=== PATIENT | male | born 1965 | race Caucasian/White ===

== ENCOUNTER 2020-11-20 14:22 | Inpatient (IN) ==
[2020-11-20] MEDS ORDERED: SODIUM CHLORIDE 0.9% 1,000 ML IV STA ×2 (15:05→16:07)
[2020-11-20] MEDS ORDERED: HYDROmorphone 2 MG/1 ML VIAL IV STA ×2 (15:12→17:12)
[2020-11-20] MEDS ORDERED: ENOXAPARIN 100 MG/ML SYRINGE SUBCUT STA (15:12)
[2020-11-20] MEDS ORDERED: ONDANSETRON 4 MG/2 ML VIAL IV STA (15:12)
[2020-11-20 15:22] LABS: Basophils % 0.2 % (0.0-0.8); Hemoglobin 10.7 GM/DL (14.0-18.0); Immature Granulocytes % 4.3 %; Immature Granulocytes Absolute 0.87 #; Lymphocytes # 1.6 10*3/uL (1.4-4.0); Lymphocytes % 8.1 % (21.2-54.2); Mean Corpuscular HGB Conc 33.4 GM/DL (32-36); Mean Corpuscular Volume 91.7 FL (87-102); Mean Platelet Volume 8.2 FL (9.6-12.0); Monocytes % 6.7 % (1.7-12.7); Neutrophils % 80.7 % (38.7-73.9); Platelet Count 590 T/CUMM (130-400); Red Blood Count 3.49 MC/CUMM (3.8-5.5); White Blood Count 20.1 T/CUMM (4-12)
[2020-11-20 15:41] LABS: Anisocytosis Slight; Band Neutrophils 5 % (0-10); Burr Cells Slight; Lymphocytes 8 % (20-55); Segmented Neutrophils 80 % (50-85); Total Cells Counted 100
[2020-11-20 15:42] LABS: Platelet Estimate Increased
[2020-11-20] MEDS ORDERED: LORazepam 2 MG/1 ML VIAL IV STA (15:50)
[2020-11-20 15:55] LABS: INR 1.1; PT Patient Result 11.8 SECS (10.5-12.0); Partial Thromboplastin Time 35.4 SECS (23.9-33.8)
[2020-11-20 16:03] LABS: Calcium 8.9 MG/DL (8.5-10.1); Osmolality,Calculated 305.5 MOS/KG (273-304); Potassium 4.7 MMOL/L (3.5-5.1)
[2020-11-20] MEDS ORDERED: PIPERACILLIN/TAZOBACTAM 3,375 MG in SODIUM CHLORIDE 0.9% 100 ML IV STA (16:07)
[2020-11-20] MEDS ORDERED: PIPERACILLIN/TAZOBACTAM 3,375 MG VIAL IV ONE (16:07)
[2020-11-20] MEDS ORDERED: DEXTROSE 50% 25 GM/50 ML VIAL IV PRN (18:02)
[2020-11-20] MEDS ORDERED: DOCUSATE SODIUM 100 MG CAPSULE PO PRN (18:02)
[2020-11-20] MEDS ORDERED: ONDANSETRON 4 MG/2 ML VIAL IV PRN (18:02)
[2020-11-20] MEDS ORDERED: hydrALAZINE 20 MG/1 ML VIAL IV PRN (18:02)
[2020-11-20] MEDS ORDERED: GLUCAGON 1 MG VIAL IM PRN (18:02)
[2020-11-20] MEDS ORDERED: SIMETHICONE CHEW 125 MG TABLET PO PRN (18:02)
[2020-11-20] MEDS ORDERED: CALCIUM CARBONATE CHEW 500 MG TABLET PO PRN (18:02)
[2020-11-20] MEDS ORDERED: diphenhydrAMINE CAP 25 MG CAPSULE PO PRN (18:02)
[2020-11-20] MEDS: SODIUM BICARB INJ 50 MEQ in SODIUM CHLORIDE 0.45% 1,000 ML IV SCH (18:50)
[2020-11-20] MEDS: ALBUTEROL 2.5 MG/3 ML NEB RESP TX SCH (19:20)
[2020-11-20 19:42] LABS: Bilirubin,Urine Negative (Negative); Blood, Urine Small mg/dL (Negative); Glucose,Urine (UA) Negative (Negative); Ketones,Urine Negative (Negative); Mucus,Urine Occasional /LPF (Occasional); Nitrite,Urine Negative (Negative); Protein,Urine 100 MG/DL; RBC,Urine 2 /HPF (0-4); Squamous Epithelial Cell,Urine Occasional /HPF (0-10); Urine Appearance Slightly Hazy (Clear); Urine Color Yellow (Yellow); Urine Specific Gravity 1.014 (1.001-1.035); Urine Urobilinogen < 2.0 EU/DL (0.2-1.0)
[2020-11-20 19:57] LABS: Protein/Creatinine Ratio,Urine 0.8 RATIO
[2020-11-20] MEDS: ROSUVASTATIN 10 MG TABLET PO SCH (21:38)
[2020-11-20] MEDS: HYDROmorphone 2 MG/1 ML VIAL IV PRN (21:40)
[2020-11-21] MEDS: HYDROmorphone 2 MG/1 ML VIAL IV PRN ×6 (00:54→23:29)
[2020-11-21] MEDS: ZALEPLON 5 MG CAPSULE PO PRN ×2 (00:58→20:35)
[2020-11-21] MEDS: PIPERACILLIN/TAZOBACTAM 3,375 MG in SODIUM CHLORIDE 0.9% 100 ML IV SCH ×4 (02:24→20:33)
[2020-11-21 05:28] LABS: Basophils % 0.2 % (0.0-0.8); Hematocrit 27.3 VOL% (42.0-52.0); Immature Granulocytes % 4.7 %; Immature Granulocytes Absolute 0.54 #; Lymphocytes # 0.9 10*3/uL (1.4-4.0); Lymphocytes % 8.1 % (21.2-54.2); Mean Corpuscular Volume 93.5 FL (87-102); Mean Platelet Volume 8.2 FL (9.6-12.0); Monocytes % 7.1 % (1.7-12.7); Neutrophils % 79.9 % (38.7-73.9); Platelet Count 549 T/CUMM (130-400); Red Blood Count 2.92 MC/CUMM (3.8-5.5); Red Cell Distribution Width 15.3 % (9.3-17.3); White Blood Count 11.5 T/CUMM (4-12)
[2020-11-21] MEDS: LEVOTHYROXINE 75 MCG TABLET PO SCH (05:49)
[2020-11-21 05:52] LABS: Band Neutrophils 3 % (0-10); Lymphocytes 7 % (20-55); Platelet Estimate Increased; Segmented Neutrophils 85 % (50-85); Total Cells Counted 100
[2020-11-21 06:06] LABS: Albumin 2.6 G/DL (3.4-5.0); Bilirubin,Total 0.4 MG/DL (0.20-1.00); Calcium 8.2 MG/DL (8.5-10.1); Osmolality,Calculated 309.4 MOS/KG (273-304); Potassium 4.8 MMOL/L (3.5-5.1); Thyroid Stimulating Hormone 2.46 uIU/ml (0.358-3.74); Total Protein 7.9 G/DL (6.4-8.2)
[2020-11-21] MEDS: ALBUTEROL 2.5 MG/3 ML NEB RESP TX SCH ×4 (06:21→20:39)
[2020-11-21] MEDS: SODIUM BICARB INJ 50 MEQ in SODIUM CHLORIDE 0.45% 1,000 ML IV SCH ×2 (08:59→14:09)
[2020-11-21] MEDS: PANTOPRAZOLE 40 MG TABLET PO SCH (09:19)
[2020-11-21 10:06] LABS: Cyclic Citrull Peptide Interp Negative
[2020-11-21] MEDS: HEPARIN DRIP 25,000 UNITS/500 ML PREMIX IV SCH (10:43)
[2020-11-21 16:51] LABS: INR 1.1; PT Patient Result 12.4 SECS (10.5-12.0); Partial Thromboplastin Time 63.4 SECS (23.9-33.8)
[2020-11-21] MEDS ORDERED: SODIUM BICARB IV SCH (18:00)
[2020-11-21] MEDS ORDERED: THIAMINE IV SCH (18:00)
[2020-11-21] MEDS ORDERED: SODIUM BICARB INJ 150 MEQ in DEXTROSE 5% 850 ML IV SCH (18:00)
[2020-11-21] MEDS ORDERED: [UNRECOGNIZED DRUG - OTHER] IV SCH (18:00)
[2020-11-21] MEDS ORDERED: MULTIVITAMIN IV SCH (18:00)
[2020-11-21] MEDS ORDERED: ENOXAPARIN 30 MG/0.3 ML SYRINGE SUBCUT SCH (18:30)
[2020-11-21] MEDS: ROSUVASTATIN 10 MG TABLET PO SCH (20:34)
[2020-11-21] MEDS: SODIUM BICARB IV SCH (23:30)
[2020-11-21] MEDS: [UNRECOGNIZED DRUG - OTHER] IV SCH (23:30)
[2020-11-21] MEDS: THIAMINE IV SCH (23:30)
[2020-11-21] MEDS: MULTIVITAMIN IV SCH (23:30)
[2020-11-22] MEDS: ALBUTEROL 2.5 MG/3 ML NEB RESP TX SCH ×4 (01:21→20:38)
[2020-11-22] MEDS: PIPERACILLIN/TAZOBACTAM 3,375 MG in SODIUM CHLORIDE 0.9% 100 ML IV SCH ×4 (02:42→21:15)
[2020-11-22] MEDS: HEPARIN DRIP 25,000 UNITS/500 ML PREMIX IV SCH ×2 (05:12→13:23)
[2020-11-22 05:33] LABS: Basophils % 0.1 % (0.0-0.8); Immature Granulocytes % 4.2 %; Immature Granulocytes Absolute 0.34 #; Lymphocytes # 0.7 10*3/uL (1.4-4.0); Lymphocytes % 9.2 % (21.2-54.2); Mean Corpuscular Volume 90.5 FL (87-102); Mean Platelet Volume 7.9 FL (9.6-12.0); Monocytes % 6.9 % (1.7-12.7); Neutrophils % 79.6 % (38.7-73.9); Red Cell Distribution Width 15.2 % (9.3-17.3); White Blood Count 8.1 T/CUMM (4-12)
[2020-11-22 05:46] LABS: Calcium 6.7 MG/DL (8.5-10.1); Osmolality,Calculated 329.8 MOS/KG (273-304); Potassium 3.1 MMOL/L (3.5-5.1)
[2020-11-22 05:55] LABS: Hemoglobin 6.3 GM/DL (14.0-18.0); Platelet Count 394 T/CUMM (130-400); Red Blood Count 1.99 MC/CUMM (3.8-5.5)
[2020-11-22 06:02] LABS: Band Neutrophils 1 % (0-10); Hypochromasia 1+; Lymphocytes 12 % (20-55); Microcytosis 1+; Platelet Estimate Adequate; Segmented Neutrophils 84 % (50-85); Total Cells Counted 100
[2020-11-22] MEDS: LEVOTHYROXINE 75 MCG TABLET PO SCH (06:41)
[2020-11-22 06:55] LABS: Hematocrit 21.4 VOL% (42.0-52.0); Hemoglobin 7.2 GM/DL (14.0-18.0)
[2020-11-22 07:47] LABS: INR 1.2
[2020-11-22] MEDS: HYDROmorphone 2 MG/1 ML VIAL IV PRN ×4 (08:29→23:35)
[2020-11-22] MEDS: PANTOPRAZOLE 40 MG TABLET PO SCH (08:29)
[2020-11-22] MEDS: [UNRECOGNIZED DRUG - OTHER] IV SCH (08:30)
[2020-11-22] MEDS: SODIUM BICARB IV SCH (08:30)
[2020-11-22] MEDS: THIAMINE IV SCH ×2 (08:30→21:35)
[2020-11-22] MEDS: MULTIVITAMIN IV SCH ×2 (08:30→21:35)
[2020-11-22] MEDS: SODIUM CHLOR 0.45% KCL 20 MEQ 20 MEQ/1,000 ML BAG IV SCH (13:12)
[2020-11-22] MEDS: ACETAMINOPHEN 325 MG TABLET PO PRN ×2 (13:12→21:18)
[2020-11-22] MEDS ORDERED: [UNRECOGNIZED DRUG - OTHER] IV SCH (16:30)
[2020-11-22] MEDS ORDERED: MULTIVITAMIN IV SCH (16:30)
[2020-11-22] MEDS ORDERED: SODIUM BICARB IV SCH (16:30)
[2020-11-22] MEDS ORDERED: THIAMINE IV SCH (16:30)
[2020-11-22] MEDS: DEXTROSE IV SCH (21:35)
[2020-11-22] MEDS: ROSUVASTATIN 10 MG TABLET PO SCH (22:06)
[2020-11-23] MEDS: ALBUTEROL 2.5 MG/3 ML NEB RESP TX SCH ×2 (00:35→07:39)
[2020-11-23] MEDS: HYDROmorphone 2 MG/1 ML VIAL IV PRN ×6 (04:01→20:57)
[2020-11-23] MEDS: HEPARIN DRIP 25,000 UNITS/500 ML PREMIX IV SCH ×2 (04:05→16:54)
[2020-11-23] MEDS: LEVOTHYROXINE 75 MCG TABLET PO SCH (05:30)
[2020-11-23] MEDS: PIPERACILLIN/TAZOBACTAM 3,375 MG in SODIUM CHLORIDE 0.9% 100 ML IV SCH ×3 (05:31→21:18)
[2020-11-23 05:48] LABS: Basophils % 0.2 % (0.0-0.8); Eosinophils % 0.1 % (0.00-10.9); Hemoglobin 7.9 GM/DL (14.0-18.0); Immature Granulocytes % 2.2 %; Immature Granulocytes Absolute 0.25 #; Lymphocytes # 1.1 10*3/uL (1.4-4.0); Mean Corpuscular HGB Conc 32.9 GM/DL (32-36); Mean Corpuscular Volume 93.8 FL (87-102); Monocytes % 6.6 % (1.7-12.7); Neutrophils % 80.9 % (38.7-73.9); Red Cell Distribution Width 15.1 % (9.3-17.3)
[2020-11-23 05:58] LABS: INR 1.1; PT Patient Result 12.6 SECS (10.5-12.0); Partial Thromboplastin Time 38.2 SECS (23.9-33.8)
[2020-11-23 06:17] LABS: Platelet Count 524 T/CUMM (130-400); Red Blood Count 2.56 MC/CUMM (3.8-5.5); White Blood Count 11.4 T/CUMM (4-12)
[2020-11-23 06:26] LABS: Calcium 8.4 MG/DL (8.5-10.1)
[2020-11-23 06:33] LABS: Hypochromasia 1+; Lymphocytes 9 % (20-55); Microcytosis 1+; Platelet Estimate Adequate; Segmented Neutrophils 89 % (50-85); Total Cells Counted 100
[2020-11-23] MEDS: ACETAMINOPHEN 325 MG TABLET PO PRN (06:38)
[2020-11-23] MEDS ORDERED: VANCOMYCIN INJ 1,000 MG in SODIUM CHLORIDE 0.9% 250 ML IV ONE (08:54)
[2020-11-23] MEDS: PANTOPRAZOLE 40 MG TABLET PO SCH (10:13)
[2020-11-23] MEDS: SODIUM CHLOR 0.45% KCL 20 MEQ 20 MEQ/1,000 ML BAG IV SCH ×2 (11:29→11:30)
[2020-11-23] MEDS: ACETYLCYSTEINE 600 MG CAPSULE PO SCH ×3 (11:30→20:57)
[2020-11-23] MEDS ORDERED: ALBUTEROL 2.5 MG/3 ML NEB RESP TX PRN (11:50)
[2020-11-23] MEDS: SODIUM CHLORIDE 0.45% 1,000 ML IV SCH (12:39)
[2020-11-23] MEDS: DEXTROSE IV SCH (15:09)
[2020-11-23] MEDS: THIAMINE IV SCH (15:09)
[2020-11-23] MEDS: MULTIVITAMIN IV SCH (15:09)
[2020-11-23] MEDS: ROSUVASTATIN 10 MG TABLET PO SCH (20:57)
[2020-11-23] MEDS: ZALEPLON 5 MG CAPSULE PO PRN (21:03)
[2020-11-24] MEDS: HYDROmorphone 2 MG/1 ML VIAL IV PRN ×9 (00:06→23:03)
[2020-11-24] MEDS: SODIUM CHLORIDE 0.45% 1,000 ML IV SCH ×3 (03:50→11:48)
[2020-11-24 05:49] LABS: Basophils % 0.1 % (0.0-0.8); Eosinophils # 0.1 10*3/uL (0.0-0.87); Eosinophils % 0.5 % (0.00-10.9); Hematocrit 22.9 VOL% (42.0-52.0); Hemoglobin 7.4 GM/DL (14.0-18.0); Immature Granulocytes % 1.8 %; Immature Granulocytes Absolute 0.18 #; Lymphocytes # 1.2 10*3/uL (1.4-4.0); Lymphocytes % 11.3 % (21.2-54.2); Mean Corpuscular HGB Conc 32.3 GM/DL (32-36); Mean Corpuscular Volume 94.6 FL (87-102); Mean Platelet Volume 7.9 FL (9.6-12.0); Monocytes % 7.7 % (1.7-12.7); Neutrophils % 78.6 % (38.7-73.9); Platelet Count 446 T/CUMM (130-400); Red Blood Count 2.42 MC/CUMM (3.8-5.5); Red Cell Distribution Width 14.9 % (9.3-17.3); White Blood Count 10.2 T/CUMM (4-12)
[2020-11-24] MEDS: LEVOTHYROXINE 75 MCG TABLET PO SCH (06:08)
[2020-11-24] MEDS: PIPERACILLIN/TAZOBACTAM 3,375 MG in SODIUM CHLORIDE 0.9% 100 ML IV SCH ×3 (06:08→22:46)
[2020-11-24 06:10] LABS: Hypochromasia 1+; Lymphocytes 6 % (20-55); Microcytosis 1+; Platelet Estimate Adequate; Segmented Neutrophils 87 % (50-85); Total Cells Counted 100
[2020-11-24 06:15] LABS: Calcium 8.2 MG/DL (8.5-10.1); Osmolality,Calculated 285.1 MOS/KG (273-304)
[2020-11-24 06:18] LABS: Bilirubin,Total 1.7 MG/DL (0.20-1.00); Calcium 8.3 MG/DL (8.5-10.1); Osmolality,Calculated 281.4 MOS/KG (273-304); Total Protein 7.1 G/DL (6.4-8.2)
[2020-11-24] MEDS: ACETYLCYSTEINE 600 MG CAPSULE PO SCH ×2 (09:27→22:45)
[2020-11-24] MEDS: PANTOPRAZOLE 40 MG TABLET PO SCH (09:27)
[2020-11-24] MEDS: MULTIVITAMIN IV SCH (15:21)
[2020-11-24] MEDS: DEXTROSE IV SCH (15:21)
[2020-11-24] MEDS: THIAMINE IV SCH (15:21)
[2020-11-24] MEDS: HEPARIN DRIP 25,000 UNITS/500 ML PREMIX IV SCH (16:16)
[2020-11-24] MEDS: ROSUVASTATIN 10 MG TABLET PO SCH (22:45)
[2020-11-24] MEDS: ZALEPLON 5 MG CAPSULE PO PRN (22:45)
[2020-11-25] MEDS: HYDROmorphone 2 MG/1 ML VIAL IV PRN ×7 (02:28→23:47)
[2020-11-25] MEDS: PIPERACILLIN/TAZOBACTAM 3,375 MG in SODIUM CHLORIDE 0.9% 100 ML IV SCH ×3 (05:53→21:25)
[2020-11-25] MEDS: LEVOTHYROXINE 75 MCG TABLET PO SCH (05:53)
[2020-11-25 06:00] LABS: Basophils % 0.1 % (0.0-0.8); Eosinophils # 0.2 10*3/uL (0.0-0.87); Eosinophils % 1.7 % (0.00-10.9); Hematocrit 25.1 VOL% (42.0-52.0); Hemoglobin 8.1 GM/DL (14.0-18.0); Immature Granulocytes % 1.4 %; Immature Granulocytes Absolute 0.13 #; Lymphocytes % 11.3 % (21.2-54.2); Mean Corpuscular HGB Conc 32.3 GM/DL (32-36); Mean Corpuscular Volume 96.9 FL (87-102); Mean Platelet Volume 8.2 FL (9.6-12.0); Monocytes % 6.2 % (1.7-12.7); Neutrophils % 79.3 % (38.7-73.9); Platelet Count 460 T/CUMM (130-400); Red Blood Count 2.59 MC/CUMM (3.8-5.5); Red Cell Distribution Width 14.4 % (9.3-17.3); White Blood Count 9.2 T/CUMM (4-12)
[2020-11-25 06:10] LABS: Calcium 8.4 MG/DL (8.5-10.1); Osmolality,Calculated 273.8 MOS/KG (273-304); Potassium 3.8 MMOL/L (3.5-5.1)
[2020-11-25 06:25] LABS: Band Neutrophils 1 % (0-10); Eosinophils 2 % (0-10); Hypochromasia 1+; Lymphocytes 8 % (20-55); Microcytosis 1+; Platelet Estimate Adequate; Segmented Neutrophils 82 % (50-85); Total Cells Counted 100
[2020-11-25] MEDS ORDERED: LIDOCAINE 1% 20 ML VIAL ONE (10:00)
[2020-11-25] MEDS ORDERED: fentaNYL 100 MCG/2 ML VIAL ONE (10:19)
[2020-11-25] MEDS ORDERED: LACTATED RINGERS 1,000 ML IV SCH (10:30)
[2020-11-25] MEDS ORDERED: MIDAZOLAM 2 MG/2 ML VIAL ONE (10:51)
[2020-11-25] MEDS ORDERED: HYDROmorphone 2 MG/1 ML VIAL ONE (10:51)
[2020-11-25] MEDS ORDERED: SEVOFLURANE 1 UNIT/15 MINUTE INH ONE ×3 (10:56→11:32)
[2020-11-25] MEDS ORDERED: ONDANSETRON 4 MG/2 ML VIAL ONE (10:56)
[2020-11-25] MEDS ORDERED: DEXAMETHASONE 4 MG/1 ML VIAL ONE (10:56)
[2020-11-25] MEDS ORDERED: ACETAMINOPHEN INJ 1,000 MG/100 ML VIAL IV ONE (11:41)
[2020-11-25] MEDS ORDERED: KETOROLAC 30 MG/1 ML VIAL ONE (11:42)
[2020-11-25] MEDS ORDERED: LACTATED RINGERS 1,000 ML IV ONE (12:02)
[2020-11-25] MEDS: ACETYLCYSTEINE 600 MG CAPSULE PO SCH (13:26)
[2020-11-25] MEDS: PANTOPRAZOLE 40 MG TABLET PO SCH (13:26)
[2020-11-25] MEDS: DEXTROSE IV SCH (17:53)
[2020-11-25] MEDS: MULTIVITAMIN IV SCH (17:53)
[2020-11-25] MEDS: THIAMINE IV SCH (17:53)
[2020-11-25] MEDS: SODIUM CHLORIDE 0.45% 1,000 ML IV SCH (17:54)
[2020-11-25] MEDS: ROSUVASTATIN 10 MG TABLET PO SCH (20:54)
[2020-11-26] MEDS: HYDROmorphone 2 MG/1 ML VIAL IV PRN ×7 (02:36→20:27)
[2020-11-26 04:35] LABS: Basophils % 0.1 % (0.0-0.8); Eosinophils % 0.1 % (0.00-10.9); Immature Granulocytes % 2.2 %; Immature Granulocytes Absolute 0.32 #; Lymphocytes # 0.9 10*3/uL (1.4-4.0); Lymphocytes % 6.2 % (21.2-54.2); Mean Corpuscular Volume 95.6 FL (87-102); Mean Platelet Volume 8.5 FL (9.6-12.0); Monocytes % 6.2 % (1.7-12.7); Neutrophils % 85.2 % (38.7-73.9); Red Blood Count 2.03 MC/CUMM (3.8-5.5); Red Cell Distribution Width 13.7 % (9.3-17.3)
[2020-11-26 04:42] LABS: Hematocrit 19.4 VOL% (42.0-52.0); Hemoglobin 6.4 GM/DL (14.0-18.0); Platelet Count 427 T/CUMM (130-400); White Blood Count 14.5 T/CUMM (4-12)
[2020-11-26] MEDS ORDERED: SODIUM CHLORIDE 0.9% 1,000 ML IV PRN (05:05)
[2020-11-26 05:11] LABS: Calcium 7.8 MG/DL (8.5-10.1); Potassium 4.5 MMOL/L (3.5-5.1)
[2020-11-26] MEDS: LEVOTHYROXINE 75 MCG TABLET PO SCH (05:32)
[2020-11-26] MEDS: PIPERACILLIN/TAZOBACTAM 3,375 MG in SODIUM CHLORIDE 0.9% 100 ML IV SCH ×3 (05:33→22:15)
[2020-11-26 07:28] LABS: Band Neutrophils 2 % (0-10); Lymphocytes 6 % (20-55); Platelet Estimate Normal; Segmented Neutrophils 84 % (50-85); Total Cells Counted 100
[2020-11-26 07:30] LABS: Anisocytosis 1+; Macrocytosis 1+
[2020-11-26] MEDS: PANTOPRAZOLE 40 MG TABLET PO SCH (08:15)
[2020-11-26] MEDS: oxyCODONE/ACETAMINOPHEN 5-325 MG TABLET PO PRN ×2 (09:40→21:58)
[2020-11-26] MEDS: GABAPENTIN 300 MG CAPSULE PO SCH ×2 (15:42→20:27)
[2020-11-26] MEDS: THIAMINE IV SCH (17:44)
[2020-11-26] MEDS: MULTIVITAMIN IV SCH (17:44)
[2020-11-26] MEDS: DEXTROSE IV SCH (17:44)
[2020-11-26] MEDS: ROSUVASTATIN 10 MG TABLET PO SCH (20:27)
[2020-11-26] MEDS: SODIUM CHLORIDE 0.45% 1,000 ML IV SCH (21:05)
[2020-11-26] MEDS: ZALEPLON 5 MG CAPSULE PO PRN (23:02)
[2020-11-27] MEDS: HYDROmorphone 2 MG/1 ML VIAL IV PRN ×7 (01:10→22:33)
[2020-11-27] MEDS: oxyCODONE/ACETAMINOPHEN 5-325 MG TABLET PO PRN ×2 (03:40→07:51)
[2020-11-27] MEDS: SODIUM CHLORIDE 0.45% 1,000 ML IV SCH ×5 (05:10→23:04)
[2020-11-27] MEDS: LEVOTHYROXINE 75 MCG TABLET PO SCH (05:43)
[2020-11-27] MEDS: PIPERACILLIN/TAZOBACTAM 3,375 MG in SODIUM CHLORIDE 0.9% 100 ML IV SCH ×3 (05:44→22:16)
[2020-11-27 05:54] LABS: Calcium 7.1 MG/DL (8.5-10.1); Osmolality,Calculated 266.2 MOS/KG (273-304); Potassium 3.3 MMOL/L (3.5-5.1)
[2020-11-27 06:13] LABS: Basophils % 0.2 % (0.0-0.8); Eosinophils # 0.3 10*3/uL (0.0-0.87); Eosinophils % 2.3 % (0.00-10.9); Hematocrit 22.6 VOL% (42.0-52.0); Hemoglobin 7.4 GM/DL (14.0-18.0); Immature Granulocytes % 5.2 %; Immature Granulocytes Absolute 0.56 #; Lymphocytes # 1.4 10*3/uL (1.4-4.0); Mean Corpuscular HGB Conc 32.7 GM/DL (32-36); Mean Corpuscular Volume 92.2 FL (87-102); Mean Platelet Volume 8.5 FL (9.6-12.0); Monocytes % 8.8 % (1.7-12.7); NRBC # 0.04 10*3/uL; Neutrophils % 70.5 % (38.7-73.9); Red Cell Distribution Width 13.6 % (9.3-17.3); White Blood Count 10.9 T/CUMM (4-12)
[2020-11-27 06:19] LABS: Platelet Count 325 T/CUMM (130-400); Red Blood Count 2.45 MC/CUMM (3.8-5.5)
[2020-11-27 07:29] LABS: Anisocytosis 2+; Band Neutrophils 3 % (0-10); Eosinophils 4 % (0-10); Lymphocytes 14 % (20-55); Myelocytes 1 %; Nucleated Red Blood Cells 1 (0-5); Platelet Estimate Normal; Segmented Neutrophils 70 % (50-85); Total Cells Counted 100
[2020-11-27 07:30] LABS: Macrocytosis Slight
[2020-11-27] MEDS: GABAPENTIN 300 MG CAPSULE PO SCH ×3 (08:39→21:20)
[2020-11-27] MEDS: PANTOPRAZOLE 40 MG TABLET PO SCH (08:40)
[2020-11-27] MEDS ORDERED: POTASSIUM CHLORIDE 20 MEQ TABLET PO ONE (08:59)
[2020-11-27 10:13] LABS: Ferritin 1140.8 ng/mL (26-388)
[2020-11-27 10:19] LABS: Folate 6.54 NG/ML (5.38-24.0)
[2020-11-27] MEDS: MULTIVITAMIN IV SCH (13:34)
[2020-11-27] MEDS: THIAMINE IV SCH (13:34)
[2020-11-27] MEDS: DEXTROSE IV SCH (13:34)
[2020-11-27 13:58] LABS: Hemoglobin 8.8 GM/DL (14.0-18.0)
[2020-11-27] MEDS: ROSUVASTATIN 10 MG TABLET PO SCH (21:20)
[2020-11-27] MEDS: ZALEPLON 5 MG CAPSULE PO PRN (22:19)
[2020-11-28] MEDS: HYDROmorphone 2 MG/1 ML VIAL IV PRN ×5 (01:41→17:15)
[2020-11-28] MEDS: PIPERACILLIN/TAZOBACTAM 3,375 MG in SODIUM CHLORIDE 0.9% 100 ML IV SCH ×3 (06:33→21:58)
[2020-11-28] MEDS: LEVOTHYROXINE 75 MCG TABLET PO SCH (06:34)
[2020-11-28 07:03] LABS: Basophils % 0.2 % (0.0-0.8); Eosinophils # 0.3 10*3/uL (0.0-0.87); Eosinophils % 2.2 % (0.00-10.9); Hematocrit 25.2 VOL% (42.0-52.0); Hemoglobin 8.3 GM/DL (14.0-18.0); Immature Granulocytes % 5.5 %; Immature Granulocytes Absolute 0.73 #; Lymphocytes # 1.7 10*3/uL (1.4-4.0); Lymphocytes % 12.7 % (21.2-54.2); Mean Corpuscular HGB Conc 32.9 GM/DL (32-36); Mean Platelet Volume 8.4 FL (9.6-12.0); Monocytes % 7.9 % (1.7-12.7); NRBC # 0.03 10*3/uL; Neutrophils % 71.5 % (38.7-73.9); Platelet Count 323 T/CUMM (130-400); Red Blood Count 2.71 MC/CUMM (3.8-5.5); Red Cell Distribution Width 13.9 % (9.3-17.3); White Blood Count 13.3 T/CUMM (4-12)
[2020-11-28 07:32] LABS: Band Neutrophils 1 % (0-10); Lymphocytes 12 % (20-55); Segmented Neutrophils 80 % (50-85); Total Cells Counted 100
[2020-11-28 07:33] LABS: Hypochromasia 1+; Microcytosis 1+; Polychromasia Slight
[2020-11-28 07:34] LABS: Platelet Estimate Normal
[2020-11-28] MEDS ORDERED: POTASSIUM CHLORIDE 20 MEQ TABLET PO ONE (07:50)
[2020-11-28] MEDS: GABAPENTIN 300 MG CAPSULE PO SCH ×3 (09:12→21:54)
[2020-11-28] MEDS: DOCUSATE SODIUM 100 MG CAPSULE PO SCH ×2 (09:12→21:54)
[2020-11-28] MEDS: POLYETHYLENE GLYCOL POWDER 17 GM PACK PO SCH (09:12)
[2020-11-28] MEDS: PANTOPRAZOLE 40 MG TABLET PO SCH (10:34)
[2020-11-28] MEDS: THIAMINE IV SCH (15:45)
[2020-11-28] MEDS: MULTIVITAMIN IV SCH (15:45)
[2020-11-28] MEDS: DEXTROSE IV SCH (15:45)
[2020-11-28] MEDS ORDERED: NALOXONE 0.4 MG/ML VIAL IV PRN (18:19)
[2020-11-28] MEDS: ROSUVASTATIN 10 MG TABLET PO SCH (21:54)
[2020-11-29] MEDS: HYDROmorphone PCA 30 MG/30 ML SYRINGE IV SCH (01:36)
[2020-11-29 06:22] LABS: Basophils % 0.4 % (0.0-0.8); Eosinophils # 0.2 10*3/uL (0.0-0.87); Eosinophils % 1.8 % (0.00-10.9); Hematocrit 26.8 VOL% (42.0-52.0); Immature Granulocytes % 5.3 %; Lymphocytes # 1.6 10*3/uL (1.4-4.0); Lymphocytes % 14.3 % (21.2-54.2); Mean Corpuscular HGB Conc 33.6 GM/DL (32-36); Mean Corpuscular Volume 92.1 FL (87-102); Mean Platelet Volume 8.5 FL (9.6-12.0); Monocytes % 8.9 % (1.7-12.7); Neutrophils % 69.3 % (38.7-73.9); Platelet Count 340 T/CUMM (130-400); Red Blood Count 2.91 MC/CUMM (3.8-5.5); Red Cell Distribution Width 14.1 % (9.3-17.3); White Blood Count 11.3 T/CUMM (4-12)
[2020-11-29 06:43] LABS: Calcium 8.9 MG/DL (8.5-10.1); Osmolality,Calculated 274.7 MOS/KG (273-304); Potassium 4.2 MMOL/L (3.5-5.1)
[2020-11-29 06:48] LABS: Lymphocytes 11 % (20-55); Platelet Estimate Normal; Segmented Neutrophils 78 % (50-85); Total Cells Counted 100
[2020-11-29] MEDS: LEVOTHYROXINE 75 MCG TABLET PO SCH (07:27)
[2020-11-29] MEDS: PIPERACILLIN/TAZOBACTAM 3,375 MG in SODIUM CHLORIDE 0.9% 100 ML IV SCH ×3 (07:34→21:21)
[2020-11-29] MEDS: PANTOPRAZOLE 40 MG TABLET PO SCH (09:29)
[2020-11-29] MEDS: GABAPENTIN 300 MG CAPSULE PO SCH ×3 (09:29→21:21)
[2020-11-29] MEDS: DOCUSATE SODIUM 100 MG CAPSULE PO SCH ×2 (09:29→21:21)
[2020-11-29] MEDS: POLYETHYLENE GLYCOL POWDER 17 GM PACK PO SCH (14:48)
[2020-11-29] MEDS: ROSUVASTATIN 10 MG TABLET PO SCH (21:21)
[2020-11-30] MEDS: LEVOTHYROXINE 75 MCG TABLET PO SCH (06:40)
[2020-11-30] MEDS: DOCUSATE SODIUM 100 MG CAPSULE PO SCH ×2 (09:43→20:35)
[2020-11-30] MEDS: PANTOPRAZOLE 40 MG TABLET PO SCH (09:43)
[2020-11-30] MEDS: POLYETHYLENE GLYCOL POWDER 17 GM PACK PO SCH (09:43)
[2020-11-30] MEDS: GABAPENTIN 300 MG CAPSULE PO SCH ×3 (09:43→20:35)
[2020-11-30] MEDS: HYDROmorphone PCA 30 MG/30 ML SYRINGE IV SCH ×2 (11:09→22:54)
[2020-11-30] MEDS: ROSUVASTATIN 10 MG TABLET PO SCH (20:35)
[2020-11-30] MEDS: HYDROmorphone 2 MG TABLET PO PRN (23:44)
[2020-12-01] MEDS: HYDROmorphone 2 MG TABLET PO PRN ×4 (04:29→21:38)
[2020-12-01 05:58] LABS: Basophils # 0.1 10*3/uL (0.0-0.2); Basophils % 0.5 % (0.0-0.8); Eosinophils # 0.2 10*3/uL (0.0-0.87); Eosinophils % 1.9 % (0.00-10.9); Hematocrit 29.8 VOL% (42.0-52.0); Hemoglobin 9.5 GM/DL (14.0-18.0); Immature Granulocytes % 3.8 %; Immature Granulocytes Absolute 0.39 #; Lymphocytes # 1.7 10*3/uL (1.4-4.0); Lymphocytes % 16.6 % (21.2-54.2); Mean Corpuscular HGB Conc 31.9 GM/DL (32-36); Mean Corpuscular Volume 94.3 FL (87-102); Mean Platelet Volume 8.5 FL (9.6-12.0); Monocytes % 8.7 % (1.7-12.7); NRBC # 0.04 10*3/uL; Neutrophils % 68.5 % (38.7-73.9); Platelet Count 440 T/CUMM (130-400); Red Blood Count 3.16 MC/CUMM (3.8-5.5); White Blood Count 10.4 T/CUMM (4-12)
[2020-12-01] MEDS: LEVOTHYROXINE 75 MCG TABLET PO SCH (06:02)
[2020-12-01 07:17] LABS: Lymphocytes 21 % (20-55); Segmented Neutrophils 73 % (50-85); Total Cells Counted 100
[2020-12-01 07:20] LABS: Hypochromasia Slight; Spherocytes Slight
[2020-12-01 07:21] LABS: Platelet Estimate Adequate
[2020-12-01] MEDS: PANTOPRAZOLE 40 MG TABLET PO SCH (08:52)
[2020-12-01] MEDS: GABAPENTIN 300 MG CAPSULE PO SCH ×3 (08:52→20:31)
[2020-12-01] MEDS ORDERED: VANCOMYCIN INJ 1,000 MG in SODIUM CHLORIDE 0.9% 250 ML IV SCH (09:30)
[2020-12-01] MEDS: DOCUSATE SODIUM 100 MG CAPSULE PO SCH ×2 (09:38→22:10)
[2020-12-01] MEDS: POLYETHYLENE GLYCOL POWDER 17 GM PACK PO SCH (09:40)
[2020-12-01] MEDS: PIPERACILLIN/TAZOBACTAM 3,375 MG in SODIUM CHLORIDE 0.9% 100 ML IV SCH ×2 (11:08→18:37)
[2020-12-01] MEDS: VANCOMYCIN INJ 1,250 MG in SODIUM CHLORIDE 0.9% 250 ML IV SCH ×2 (11:13→22:54)
[2020-12-01] MEDS: ROSUVASTATIN 10 MG TABLET PO SCH (20:31)
[2020-12-02] MEDS: PIPERACILLIN/TAZOBACTAM 3,375 MG in SODIUM CHLORIDE 0.9% 100 ML IV SCH ×3 (02:52→20:14)
[2020-12-02] MEDS: oxyCODONE/ACETAMINOPHEN 5-325 MG TABLET PO PRN ×3 (04:21→20:11)
[2020-12-02] MEDS: LEVOTHYROXINE 75 MCG TABLET PO SCH (05:44)
[2020-12-02] MEDS: HYDROmorphone 2 MG/1 ML VIAL IV PRN (06:30)
[2020-12-02] MEDS: POLYETHYLENE GLYCOL POWDER 17 GM PACK PO SCH (08:56)
[2020-12-02] MEDS: DOCUSATE SODIUM 100 MG CAPSULE PO SCH ×2 (08:56→20:12)
[2020-12-02] MEDS: GABAPENTIN 300 MG CAPSULE PO SCH ×3 (08:57→20:11)
[2020-12-02] MEDS: PANTOPRAZOLE 40 MG TABLET PO SCH (08:57)
[2020-12-02] MEDS: VANCOMYCIN INJ 1,250 MG in SODIUM CHLORIDE 0.9% 250 ML IV SCH ×2 (10:25→23:05)
[2020-12-02] MEDS: ROSUVASTATIN 10 MG TABLET PO SCH (20:11)
[2020-12-03] MEDS: oxyCODONE/ACETAMINOPHEN 5-325 MG TABLET PO PRN ×3 (04:41→19:03)
[2020-12-03] MEDS: PIPERACILLIN/TAZOBACTAM 3,375 MG in SODIUM CHLORIDE 0.9% 100 ML IV SCH ×3 (04:42→20:22)
[2020-12-03] MEDS: LEVOTHYROXINE 75 MCG TABLET PO SCH (06:23)
[2020-12-03] MEDS: DOCUSATE SODIUM 100 MG CAPSULE PO SCH ×2 (09:40→20:22)
[2020-12-03] MEDS: POLYETHYLENE GLYCOL POWDER 17 GM PACK PO SCH (09:40)
[2020-12-03] MEDS: PANTOPRAZOLE 40 MG TABLET PO SCH (09:41)
[2020-12-03] MEDS: GABAPENTIN 300 MG CAPSULE PO SCH ×3 (09:41→20:21)
[2020-12-03] MEDS: VANCOMYCIN INJ 1,250 MG in SODIUM CHLORIDE 0.9% 250 ML IV SCH ×2 (10:33→22:26)
[2020-12-03] MEDS: ROSUVASTATIN 10 MG TABLET PO SCH (20:21)
[2020-12-04] MEDS: PIPERACILLIN/TAZOBACTAM 3,375 MG in SODIUM CHLORIDE 0.9% 100 ML IV SCH ×3 (04:38→20:31)
[2020-12-04 05:18] LABS: Basophils % 0.6 % (0.0-0.8); Eosinophils # 0.2 10*3/uL (0.0-0.87); Eosinophils % 2.4 % (0.00-10.9); Hematocrit 29.2 VOL% (42.0-52.0); Hemoglobin 9.6 GM/DL (14.0-18.0); Immature Granulocytes % 0.8 %; Immature Granulocytes Absolute 0.06 #; Lymphocytes # 1.5 10*3/uL (1.4-4.0); Lymphocytes % 20.5 % (21.2-54.2); Mean Corpuscular HGB Conc 32.9 GM/DL (32-36); Mean Corpuscular Volume 91.3 FL (87-102); Mean Platelet Volume 8.1 FL (9.6-12.0); Monocytes % 10.6 % (1.7-12.7); Neutrophils % 65.1 % (38.7-73.9); Platelet Count 445 T/CUMM (130-400); White Blood Count 7.2 T/CUMM (4-12)
[2020-12-04] MEDS: LEVOTHYROXINE 75 MCG TABLET PO SCH (05:41)
[2020-12-04] MEDS: HYDROmorphone 2 MG/1 ML VIAL IV PRN ×2 (07:44→12:09)
[2020-12-04] MEDS: PANTOPRAZOLE 40 MG TABLET PO SCH (09:47)
[2020-12-04] MEDS: POLYETHYLENE GLYCOL POWDER 17 GM PACK PO SCH (09:47)
[2020-12-04] MEDS: DOCUSATE SODIUM 100 MG CAPSULE PO SCH ×2 (09:47→20:31)
[2020-12-04] MEDS: GABAPENTIN 300 MG CAPSULE PO SCH ×3 (09:47→20:31)
[2020-12-04] MEDS: VANCOMYCIN INJ 1,250 MG in SODIUM CHLORIDE 0.9% 250 ML IV SCH ×2 (09:48→22:05)
[2020-12-04] MEDS: oxyCODONE/ACETAMINOPHEN 5-325 MG TABLET PO PRN ×2 (09:51→18:05)
[2020-12-04] MEDS: ROSUVASTATIN 10 MG TABLET PO SCH (20:31)
[2020-12-05] MEDS: PIPERACILLIN/TAZOBACTAM 3,375 MG in SODIUM CHLORIDE 0.9% 100 ML IV SCH ×3 (05:24→20:29)
[2020-12-05] MEDS: oxyCODONE/ACETAMINOPHEN 5-325 MG TABLET PO PRN ×2 (05:55→13:27)
[2020-12-05] MEDS: LEVOTHYROXINE 75 MCG TABLET PO SCH (05:55)
[2020-12-05] MEDS: POLYETHYLENE GLYCOL POWDER 17 GM PACK PO SCH (09:47)
[2020-12-05] MEDS: PANTOPRAZOLE 40 MG TABLET PO SCH (09:55)
[2020-12-05] MEDS: GABAPENTIN 300 MG CAPSULE PO SCH ×3 (09:55→20:29)
[2020-12-05] MEDS: DOCUSATE SODIUM 100 MG CAPSULE PO SCH ×2 (09:55→20:29)
[2020-12-05] MEDS: VANCOMYCIN INJ 1,250 MG in SODIUM CHLORIDE 0.9% 250 ML IV SCH ×2 (09:56→21:30)
[2020-12-05] MEDS: HYDROmorphone 2 MG/1 ML VIAL IV PRN (09:58)
[2020-12-05] MEDS: ROSUVASTATIN 10 MG TABLET PO SCH (20:29)
[2020-12-06] MEDS: PIPERACILLIN/TAZOBACTAM 3,375 MG in SODIUM CHLORIDE 0.9% 100 ML IV SCH ×3 (04:06→20:50)
[2020-12-06] MEDS: LEVOTHYROXINE 75 MCG TABLET PO SCH (06:05)
[2020-12-06] MEDS: HYDROmorphone 2 MG/1 ML VIAL IV PRN ×2 (08:42→20:31)
[2020-12-06 09:15] LABS: Basophils # 0.1 10*3/uL (0.0-0.2); Basophils % 0.8 % (0.0-0.8); Eosinophils # 0.1 10*3/uL (0.0-0.87); Eosinophils % 1.8 % (0.00-10.9); Hematocrit 31.8 VOL% (42.0-52.0); Hemoglobin 10.5 GM/DL (14.0-18.0); Immature Granulocytes % 0.5 %; Immature Granulocytes Absolute 0.03 #; Lymphocytes # 1.3 10*3/uL (1.4-4.0); Lymphocytes % 18.8 % (21.2-54.2); Mean Corpuscular Volume 91.6 FL (87-102); Mean Platelet Volume 7.9 FL (9.6-12.0); Monocytes % 10.4 % (1.7-12.7); Neutrophils % 67.7 % (38.7-73.9); Platelet Count 436 T/CUMM (130-400); Red Blood Count 3.47 MC/CUMM (3.8-5.5); Red Cell Distribution Width 14.3 % (9.3-17.3); White Blood Count 6.6 T/CUMM (4-12)
[2020-12-06] MEDS: POLYETHYLENE GLYCOL POWDER 17 GM PACK PO SCH (09:32)
[2020-12-06] MEDS: GABAPENTIN 300 MG CAPSULE PO SCH ×3 (09:33→20:32)
[2020-12-06] MEDS: PANTOPRAZOLE 40 MG TABLET PO SCH (09:33)
[2020-12-06] MEDS: DOCUSATE SODIUM 100 MG CAPSULE PO SCH ×2 (09:33→20:32)
[2020-12-06 09:47] LABS: Calcium 8.9 MG/DL (8.5-10.1); Osmolality,Calculated 276.7 MOS/KG (273-304); Potassium 3.8 MMOL/L (3.5-5.1)
[2020-12-06] MEDS: VANCOMYCIN INJ 1,250 MG in SODIUM CHLORIDE 0.9% 250 ML IV SCH (11:41)
[2020-12-06] MEDS: oxyCODONE/ACETAMINOPHEN 5-325 MG TABLET PO PRN ×2 (11:44→20:42)
[2020-12-06] MEDS: ROSUVASTATIN 10 MG TABLET PO SCH (21:42)
[2020-12-06] MEDS: LINEZOLID INJ 600 MG/300 ML PREMIX IV SCH (21:43)
[2020-12-07] MEDS: PIPERACILLIN/TAZOBACTAM 3,375 MG in SODIUM CHLORIDE 0.9% 100 ML IV SCH ×3 (05:26→20:30)
[2020-12-07] MEDS: oxyCODONE/ACETAMINOPHEN 5-325 MG TABLET PO PRN (05:27)
[2020-12-07] MEDS: LEVOTHYROXINE 75 MCG TABLET PO SCH (05:30)
[2020-12-07] MEDS: PANTOPRAZOLE 40 MG TABLET PO SCH (09:41)
[2020-12-07] MEDS: GABAPENTIN 300 MG CAPSULE PO SCH ×3 (09:41→20:29)
[2020-12-07] MEDS: DOCUSATE SODIUM 100 MG CAPSULE PO SCH ×2 (09:44→20:30)
[2020-12-07] MEDS: POLYETHYLENE GLYCOL POWDER 17 GM PACK PO SCH (09:44)
[2020-12-07] MEDS: LINEZOLID INJ 600 MG/300 ML PREMIX IV SCH ×2 (10:55→20:30)
[2020-12-07] MEDS: HYDROmorphone 2 MG/1 ML VIAL IV PRN (13:30)
[2020-12-07] MEDS: ROSUVASTATIN 10 MG TABLET PO SCH (20:29)
[2020-12-08] MEDS: oxyCODONE/ACETAMINOPHEN 5-325 MG TABLET PO PRN (01:43)
[2020-12-08] MEDS: PIPERACILLIN/TAZOBACTAM 3,375 MG in SODIUM CHLORIDE 0.9% 100 ML IV SCH ×2 (06:01→14:03)
[2020-12-08] MEDS: LEVOTHYROXINE 75 MCG TABLET PO SCH (06:01)
[2020-12-08] MEDS: POLYETHYLENE GLYCOL POWDER 17 GM PACK PO SCH (09:10)
[2020-12-08] MEDS: DOCUSATE SODIUM 100 MG CAPSULE PO SCH (09:10)
[2020-12-08] MEDS: GABAPENTIN 300 MG CAPSULE PO SCH ×2 (09:10→15:51)
[2020-12-08] MEDS: PANTOPRAZOLE 40 MG TABLET PO SCH (09:10)
[2020-12-08] MEDS ORDERED: HYDROmorphone 2 MG/1 ML VIAL IV PRN (09:25)
[2020-12-08] MEDS: LINEZOLID INJ 600 MG/300 ML PREMIX IV SCH (10:30)
[2020-12-08 11:57] VITALS: BP 119/77
[2020-12-08] MEDS: ACETAMINOPHEN 325 MG TABLET PO PRN (14:13)
== END 2020-12-08 15:40 | disposition swing bed (61) | DRG 239 ==
LOC: N.ED 14:22 → N.EDINP 18:04 → SUATTDRO 18:04 → N.EDINP 20:17 → N.TELES 21:06
PROVIDERS: ADMIT Hospitalist; ATTEND Internal Medicine